=== PATIENT | female | born 1985 | race American Indian/Alaskan Native ===

== ENCOUNTER 2017-10-17 13:05 | Emergency (ER) | payer SELFPAY ==
[2017-10-17 13:12] VITALS: BP 137/90
[2017-10-17] MEDS ORDERED: BICILLIN L-A IM ONE (15:28)
[2017-10-17] MEDS ORDERED: PERCOCET 5/325 PO ONE (15:28)
--- NOTE | 2017-10-17 15:28 | Emergency Department Report ---
ED ENT HPI - General Chief complaint: Dental/Oral Stated complaint: TOOTHACHE Time Seen by Provider: 10/17/17 15:28 Source: patient Mode of arrival: Ambulatory Limitations: No Limitations - History of Present Illness MD complaint: tooth pain -: Gradual Severity: moderate Consistency: constant Worsens with: eating Context- Dental: history of dental caries, poor dental care, other (has seen the dmd and needs wisdom teeth removed. did not follow up) Associated Symptoms: toothache. denies: fever, cough, gum swelling, pain with swallowing, sore throat, tinnitus, hearing loss, discharge from ear, rhinorrhea - Related Data Previous Rx's Medication Instructions Recorded Last Taken Type Amoxicillin [Trimox CAP] 500 mg PO BID #20 capsule 10/17/17 Unknown Rx traMADol [Ultram] 50 mg PO Q6HR PRN #12 tablet 10/17/17 Unknown Rx Allergies Allergy/AdvReac Type Severity Reaction Status Date / Time No Known Allergies Allergy Unverified 10/17/17 13:12 ED Dental HPI - General Chief complaint: Dental/Oral Stated complaint: TOOTHACHE Time Seen by Provider: 10/17/17 15:28 Source: patient Mode of arrival: Ambulatory Limitations: No Limitations - Related Data Previous Rx's Medication Instructions Recorded Last Taken Type Amoxicillin [Trimox CAP] 500 mg PO BID #20 capsule 10/17/17 Unknown Rx traMADol [Ultram] 50 mg PO Q6HR PRN #12 tablet 10/17/17 Unknown Rx Allergies Allergy/AdvReac Type Severity Reaction Status Date / Time No Known Allergies Allergy Unverified 10/17/17 13:12 ED Review of Systems ROS: Stated complaint: TOOTHACHE Other details as noted in HPI Comment: All other systems reviewed and negative ENT: dental pain ED Past Medical Hx - Past Medical History Previous Medical History?: No - Surgical History Past Surgical History?: No - Social History Smoking Status: Never Smoker Substance Use Type: None - Medications Home Medications: Home Medications Medication Instructions Recorded Confirmed Last Taken Type Amoxicillin [Trimox CAP] 500 mg PO BID #20 capsule 10/17/17 Unknown Rx traMADol [Ultram] 50 mg PO Q6HR PRN #12 tablet 10/17/17 Unknown Rx ED Physical Exam - General Limitations: No Limitations General appearance: alert - Head Head exam: Present: atraumatic - Eye Eye exam: Present: normal appearance, PERRL Pupils: Present: normal accommodation - ENT ENT exam: Present: mucous membranes moist - Expanded ENT Exam Expanded Ear exam: Present: normal external inspection Teeth exam: Present: dental caries 1 - Dental Tenderness, Other (numerous caries) Throat exam: Positive: normal inspection. Negative: tonsillar erythema, tonsillomegaly, tonsillar exudate, R peritonsillar mass, L peritonsillar mass - Neck Neck exam: Present: normal inspection - Respiratory Respiratory exam: Present: normal lung sounds bilaterally - Cardiovascular Cardiovascular Exam: Present: regular rate - GI/Abdominal GI/Abdominal exam: Present: soft - Rectal Rectal exam: Present: deferred - Extremities Exam Extremities exam: Present: normal inspection - Back Exam Back exam: Present: normal inspection - Neurological Exam Neurological exam: Present: alert, oriented X3, CN II-XII intact - Psychiatric Psychiatric exam: Present: normal affect, normal mood - Skin Skin exam: Present: warm, dry, intact ED Course Vital Signs 10/17/17 13:09 Temperature 98.6 F Pulse Rate 67 Respiratory 20 Rate Blood Pressure 137/90 O2 Sat by Pulse 98 Oximetry - Reevaluation(s) Reevaluation #2: 10/17/17 15:35 to er w dental pain right upper numerous caries no ludwigs no abscess no trism. taking po fluids no fever medicated discussed w pt and family need to see dmd taylor for definitive care. ED Medical Decision Making - Medical Decision Making see note - Differential Diagnosis dental caries ro abscess/ludwigs Critical care attestation.: If time is entered above; I have spent that time in minutes in the direct care of this critically ill patient, excluding procedure time. ED Disposition Clinical Impression: Dental caries Disposition: DC-01 TO HOME OR SELFCARE Is pt being admited?: No Does the pt Need Aspirin: No Condition: Stable Instructions: Dental Caries (ED) Additional Instructions: see dmd taylor Referrals: PRIMARY CARE, [Primary Care Provider] - 3-5 Days [facility] [Outside] - 3-5 Days [facility] [Outside] - 3-5 Days [facility] [Outside] - 3-5 Days [facility] [Outside] - 3-5 Days Time of Disposition: 15:34
== END 2017-10-17 15:55 | disposition home or self-care (01) ==
LOC: ED 13:05
DX: K02.9 Dental caries, unspecified (principal)
CPT/HCPCS: 96372; 99282; J0561

== ENCOUNTER 2018-05-30 10:06 | Emergency (ER) | payer MEDICAID ==
--- NOTE | 2018-05-30 12:15 | Emergency Department Report ---
ED ENT HPI - General Chief complaint: Dental/Oral Stated complaint: TOOTHACHE/SWOLLEN FACE Time Seen by Provider: 05/30/18 12:11 Source: patient Mode of arrival: Ambulatory Limitations: No Limitations - History of Present Illness Initial comments: This is a 32-year-old -[place] female presents with right sided facial swelling and toothache that started yesterday morning. Patient reports waking up yesterday with mild right-sided facial swelling and toothache. Patient states tooth has been hurting for a couple weeks now she does have an appointment with the dentist next Vibha teeth pulled. Patient states pain increased this morning she was unable to open her mouth secondary pain. Patient has taken Aleve and tramadol prescribed from prior visit with improvement of pain. Denies drooling, sore throat, difficulty swallowing, fever , chest pain, shortness of breath. MD complaint: tooth pain Onset/Timin -: days(s) Location: tooth # (#2) 1 - #2 tooth fracture and caries Severity: moderate Severity scale (0 -10): 8 Quality: aching, constant Consistency: constant Improves with: none Worsens with: eating, movement Context- Dental: history of dental caries, poor dental care Associated Symptoms: gum swelling, toothache. denies: fever, cough, pain with swallowing, sore throat, tinnitus, hearing loss, discharge from ear, rhinorrhea - Related Data Previous Rx's Medication Instructions Recorded Last Taken Type Amoxicillin [Trimox CAP] 500 mg PO BID #20 capsule 10/17/17 Unknown Rx traMADol [Ultram] 50 mg PO Q6HR PRN #12 tablet 10/17/17 Unknown Rx Acetaminophen/Codeine [Tylenol 1 tab PO Q6H PRN #12 tab 05/30/18 Unknown Rx /Codeine # 3 tab] Clindamycin [Clindamycin CAP] 300 mg PO Q8H 7 Days #21 cap 05/30/18 Unknown Rx Naproxen [Naprosyn] 500 mg PO BID #15 tablet 05/30/18 Unknown Rx Allergies Allergy/AdvReac Type Severity Reaction Status Date / Time No Known Allergies Allergy Verified 05/30/18 10:13 ED Dental HPI - General Chief complaint: Dental/Oral Stated complaint: TOOTHACHE/SWOLLEN FACE Time Seen by Provider: 05/30/18 12:11 Source: patient Mode of arrival: Ambulatory Limitations: No Limitations - Related Data Previous Rx's Medication Instructions Recorded Last Taken Type Amoxicillin [Trimox CAP] 500 mg PO BID #20 capsule 10/17/17 Unknown Rx traMADol [Ultram] 50 mg PO Q6HR PRN #12 tablet 10/17/17 Unknown Rx Acetaminophen/Codeine [Tylenol 1 tab PO Q6H PRN #12 tab 05/30/18 Unknown Rx /Codeine # 3 tab] Clindamycin [Clindamycin CAP] 300 mg PO Q8H 7 Days #21 cap 05/30/18 Unknown Rx Naproxen [Naprosyn] 500 mg PO BID #15 tablet 05/30/18 Unknown Rx Allergies Allergy/AdvReac Type Severity Reaction Status Date / Time No Known Allergies Allergy Verified 05/30/18 10:13 ED Review of Systems ROS: Stated complaint: TOOTHACHE/SWOLLEN FACE Other details as noted in HPI Constitutional: denies: chills, fever ENT: dental pain. denies: ear pain, throat pain, hearing loss, epistaxis, congestion Respiratory: denies: cough, shortness of breath, wheezing Cardiovascular: denies: chest pain, palpitations Gastrointestinal: denies: abdominal pain, nausea, vomiting, diarrhea Neurological: headache. denies: weakness, numbness, paresthesias Psychiatric: denies: anxiety, depression ED Past Medical Hx - Past Medical History Previous Medical History?: No - Surgical History Additional Surgical History: C/S - Social History Smoking Status: Current Some Day Smoker Substance Use Type: Alcohol - Medications Home Medications: Home Medications Medication Instructions Recorded Confirmed Last Taken Type Amoxicillin [Trimox CAP] 500 mg PO BID #20 capsule 10/17/17 Unknown Rx traMADol [Ultram] 50 mg PO Q6HR PRN #12 tablet 10/17/17 Unknown Rx Acetaminophen/Codeine [Tylenol 1 tab PO Q6H PRN #12 tab 05/30/18 Unknown Rx /Codeine # 3 tab] Clindamycin [Clindamycin CAP] 300 mg PO Q8H 7 Days #21 cap 05/30/18 Unknown Rx Naproxen [Naprosyn] 500 mg PO BID #15 tablet 05/30/18 Unknown Rx ED Physical Exam - General Limitations: No Limitations General appearance: alert, in no apparent distress - ENT ENT exam: Present: mucous membranes moist, other (#2, partial tooth and caries, surrounding mucosal swelling, tenderness) - Respiratory Respiratory exam: Present: normal lung sounds bilaterally. Absent: respiratory distress - Cardiovascular Cardiovascular Exam: Present: regular rate, normal rhythm. Absent: systolic murmur, diastolic murmur, rubs, gallop - GI/Abdominal GI/Abdominal exam: Present: soft, normal bowel sounds - Neurological Exam Neurological exam: Present: alert, oriented X3 - Psychiatric Psychiatric exam: Present: normal affect, normal mood - Skin Skin exam: Present: warm, dry, intact, normal color. Absent: rash ED Course Vital Signs 05/30/18 10:14 Temperature 98.3 F Pulse Rate 69 Respiratory 18 Rate Blood Pressure 117/63 O2 Sat by Pulse 99 Oximetry ED Medical Decision Making - Medical Decision Making This is a 32-year-old female that presents with right-sided facial swelling and toothache for 2 days. Patient is stable and was examined by me. Vitals are normal. Susceptible of dental caries and fractured tooth. Start clindamycin, naproxen, & Tylenol No. 3. Discussed plan with patient. She agreed with ER plan. Discharged home stable. Follow up with dentist in 3 days. Critical care attestation.: If time is entered above; I have spent that time in minutes in the direct care of this critically ill patient, excluding procedure time. ED Disposition Clinical Impression: Dental caries Fractured tooth Qualifiers: Encounter type: initial encounter Fracture type: closed Qualified Code(s): S02.5XXA - Fracture of tooth (traumatic), initial encounter for closed fracture Disposition: TO HOME OR SELFCARE Is pt being admited?: No Does the pt Need Aspirin: No Condition: Stable Instructions: Dental Caries (ED), Toothache (ED) Additional Instructions: Complete all days of clindamycin as prescribed for 14 days. Take naproxen or Tylenol No. 3 every 6 hours as needed for pain. Follow up with Dentist in 24-72 hours. Prescriptions: Acetaminophen/Codeine [Tylenol /Codeine # 3 tab] 1 tab PO Q6H PRN #12 tab PRN Reason: Pain , Severe (7-10) Clindamycin [Clindamycin CAP] 300 mg PO Q8H 7 Days #21 cap Naproxen [Naprosyn] 500 mg PO BID #15 tablet Referrals: [facility] [Outside] - 3-5 Days [facility] [Outside] - 3-5 Days [facility] [Outside] - 3-5 Days [facility] [Outside] - 3-5 Days Forms: Work/School Release Form(ED) Time of Disposition: 12:22 Print Language: OCCITAN
[2018-05-30 12:46] VITALS: BP 118/72
== END 2018-05-30 12:44 | disposition home or self-care (01) ==
LOC: ED 10:06
DX: S02.5XXA Fracture of tooth (traumatic), initial encounter for closed fracture (principal); K02.9 Dental caries, unspecified; Z72.0 Tobacco use; X58.XXXA Exposure to other specified factors, initial encounter; Y93.89 Activity, other specified; Y99.8 Other external cause status; Y92.89 Other specified places as the place of occurrence of the external cause
CPT/HCPCS: 99282

== ENCOUNTER 2020-04-20 08:17 | Emergency (ER) | payer MEDICAID, OTHER ==
[2020-04-20 08:55] VITALS: BP 149/99
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
== END 2020-04-20 10:44 | disposition home or self-care (01) ==
LOC: ED 08:17
DX: S80.02XA Contusion of left knee, initial encounter (principal); S80.01XA Contusion of right knee, initial encounter; M62.838 Other muscle spasm; X58.XXXA Exposure to other specified factors, initial encounter; Y93.89 Activity, other specified; Y92.89 Other specified places as the place of occurrence of the external cause; Y99.8 Other external cause status
CPT/HCPCS: 99282

== ENCOUNTER 2022-03-26 12:55 | Emergency (ER) | payer MEDICAID ==
[2022-03-26] MEDS ORDERED: KETOROLAC 10 MG TAB PO ONE (14:20)
[2022-03-26] MEDS ORDERED: predniSONE 20 MG TAB PO ONE (14:20)
[2022-03-26] MEDS ORDERED: CYCLOBENZAPRINE 10 MG TAB PO ONE (14:20)
--- NOTE | 2022-03-26 14:36 | Emergency Department Report ---
ED Neck Pain/Injury HPI - General Chief Complaint: Back Pain/Injury Stated Complaint: BACK/NECK PAIN Time Seen by Provider: 03/26/22 14:05 Mode of arrival: Ambulatory Limitations: No Limitations - History of Present Illness Initial Comments: 36-year-old black female with no past medical history presents to the emergency department for evaluation of 1 day history of right shoulder, back, and neck pain. She states that she woke up yesterday with pain to her right shoulder and neck that has been getting progressively worse since then. She denies any trauma or injury but states that pain has been the morning after she carried groceries in the house on the previous night. She denies fever, vision change, and headache. MD Complaint: neck pain -: Gradual, days(s) (1) Place: home Radiation: right shoulder, upper back (Right side only) Severity: severe Severity scale (0 -10): 10 Quality: aching Consistency: constant Worsens With: movement of extremity, movement of neck Context: unknown Associated Symptoms: denies: headache, fever, numbness, tingling, weakness, vertigo, difficulty walking, swollen glands, difficulty swallowing, nausea, vomiting Treatments Prior to Arrival: none - Related Data Previous Rx's Medication Instructions Recorded Last Taken Type Cyclobenzaprine [Flexeril] 10 mg PO TID PRN #21 tab 03/26/22 Unknown Rx Lidocaine [Lidoderm] 1 each TP DAILY PRN #10 patch 03/26/22 Unknown Rx Naproxen [Naprosyn] 500 mg PO BID 7 Days #14 tab 03/26/22 Unknown Rx Allergies Allergy/AdvReac Type Severity Reaction Status Date / Time No Known Allergies Allergy Verified 03/26/22 14:03 ED Review of Systems ROS: Stated complaint: BACK/NECK PAIN Other details as noted in HPI Comment: All other systems reviewed and negative Constitutional: denies: chills, fever Eyes: denies: vision change Respiratory: denies: cough, orthopnea, shortness of breath, SOB with exertion, SOB at rest, stridor, wheezing Cardiovascular: denies: chest pain, palpitations, dyspnea on exertion, orthopnea, edema, syncope, paroxysmal nocturnal dyspnea Gastrointestinal: denies: abdominal pain, nausea, vomiting Genitourinary: denies: urgency, dysuria, frequency Musculoskeletal: back pain Neurological: denies: headache, weakness ED Past Medical Hx - Past Medical History Previous Medical History?: No - Surgical History Past Surgical History?: No Additional Surgical History: C/S - Social History Smoking Status: Never Smoker Substance Use Type: None - Medications Home Medications: Home Medications Medication Instructions Recorded Confirmed Last Taken Type Cyclobenzaprine [Flexeril] 10 mg PO TID PRN #21 tab 03/26/22 Unknown Rx Lidocaine [Lidoderm] 1 each TP DAILY PRN #10 patch 03/26/22 Unknown Rx Naproxen [Naprosyn] 500 mg PO BID 7 Days #14 tab 03/26/22 Unknown Rx ED Physical Exam - General Limitations: No Limitations General appearance: alert, in no apparent distress - Head Head exam: Present: atraumatic, normocephalic - Eye Eye exam: Present: normal appearance. Absent: conjunctival injection - Neck Neck exam: Present: normal inspection, tenderness. Absent: meningismus, lymphadenopathy (Right side only) - Expanded Neck Exam Expanded Neck exam: Present: tenderness. Absent: midline deformity, anterior neck swelling, tracheal deviation - Respiratory Respiratory exam: Absent: respiratory distress - Cardiovascular Cardiovascular Exam: Present: regular rate - GI/Abdominal GI/Abdominal exam: Absent: distended - Extremities Exam Extremities exam: Present: normal inspection - Expanded Upper Extremity Exam Right Shoulder Exam: Present: normal inspection, tenderness. Absent: full ROM, swelling, ecchymosis, deformity, dislocation, erythema, tenderness over AC joint Upper Arm exam: Present: normal inspection. Absent: tenderness Vascular: Present: normal capillary refill, radial pulse. Absent: vascular compromise, Pallo, pulse deficit radial art - Back Exam Back exam: Present: normal inspection. Absent: tenderness, CVA tenderness (R), CVA tenderness (L), vertebral tenderness - Neurological Exam Neurological exam: Present: alert, oriented X3, normal gait - Psychiatric Psychiatric exam: Present: normal affect, normal mood - Skin Skin exam: Present: warm, dry, intact, normal color ED Course Vital Signs 03/26/22 13:17 Temperature 98.4 F Pulse Rate 88 Respiratory 16 Rate Blood Pressure 136/85 O2 Sat by Pulse 99 Oximetry ED Medical Decision Making - Medical Decision Making 36-year-old black female with no past medical history presents to the emergency department for evaluation of 1 day history of right shoulder, back, and neck pain. She states that she woke up yesterday with pain to her right shoulder and neck that has been getting progressively worse since then. She denies any trauma or injury but states that pain has been the morning after she carried groceries in the house on the previous night. She denies fever, vision change, and headache. Exam consistent with musculoskeletal pain only. Patient will be given one-time dose of steroids, Toradol, and Flexeril in the emergency department and discharged home with prescription for naproxen, Flexeril, and Lidoderm patch to use as needed for pain. She is advised to take medications as prescribed and follow-up with primary care provider if no improvement or worsening symptoms. She is advised to return to the emergency department for any concerning symptoms. She verbalizes understanding of and agreement with plan of care. Critical care attestation.: If time is entered above; I have spent that time in minutes in the direct care of this critically ill patient, excluding procedure time. ED Disposition Clinical Impression: Neck pain on right side Right shoulder pain Qualifiers: Chronicity: acute Qualified Code(s): M25.511 - Pain in right shoulder Disposition: 01 HOME / SELF CARE / HOMELESS Is pt being admited?: No Does the pt Need Aspirin: No Condition: Stable Instructions: Shoulder Pain, [id number], Musculoskeletal Pain, Joint Pain, [id number], How to Use Cold Therapy, [id number] Additional Instructions: Take medications as prescribed. Follow-up with primary care provider if no improvement or worsening symptoms. Return to the emergency department for any concerning symptoms Prescriptions: Cyclobenzaprine [Flexeril] 10 mg PO TID PRN #21 tab PRN Reason: Muscle Spasm Lidocaine [Lidoderm] 1 each TP DAILY PRN #10 patch PRN Reason: Pain, Moderate (4-6) Naproxen [Naprosyn] 500 mg PO BID 7 Days #14 tab Referrals: WESLY MAS MD [Staff Physician] - 3-5 Days Forms: Work/School Release Form(ED) Time of Disposition: 14:44
[2022-03-26 16:53] VITALS: BP 118/80
== END 2022-03-26 16:52 | disposition home or self-care (01) ==
LOC: ED 12:55
DX: M54.2 Cervicalgia (principal); M25.511 Pain in right shoulder; M54.9 Dorsalgia, unspecified; Z79.899 Other long term (current) drug therapy
CPT/HCPCS: 99282